=== PATIENT | female | born 1935 | race Asian ===

== ENCOUNTER 2018-07-31 08:42 | Outpatient (CLI) | payer MEDICAID, MEDICARE ==
--- NOTE | 2018-07-31 16:00 | Diagnostic Imaging Report ---
Indication: Osteoporosis Technique: 10 mm thick slices obtained through the L2, L3, and L4 vertebral bodies. Cortical and trabecular regions of interest were drawn. The average trabecular bone mineral density was calculated. Total dose length product 32 mGycm. CTDIvol(s) 3 x 3 mGy. Dose reduction achieved using automated exposure control Comparison: none Findings: The calculated bone mineral density is 78.2 mg ca-LEACH/ml. The T score is -2.94. This indicates the patient's bone mineral density is 2.94 standard deviations below that of normal 20-year-old females. The Z score is not able to be calculated, due to patient's age. Impression: Patient's bone mineral density is greater than 25% below that of normal 20-year-old females. Patient is considered osteoporotic by WHO criteria. Insufficiency fracture risk is high. Patient should be considered for therapy, if not already initiated, with followup scan in one year to monitor response to therapy. The CT scanner at [facility] is accredited by the [employer] and the scans are performed using protocols designed to limit radiation exposure to as low as reasonably achievable to attain images of sufficient resolution adequate for diagnostic evaluation.
== END 2018-07-31 10:42 | disposition home or self-care (01) ==
LOC: CAT 08:42
DX: M81.0 Age-related osteoporosis without current pathological fracture (principal)
CPT/HCPCS: 77078